=== PATIENT | female | born 1975 | race Caucasian/White ===

== ENCOUNTER 2023-10-02 21:01 | Outpatient (REF) | payer BC, SELFPAY ==
--- NOTE | 2023-10-02 16:00 | NASALBX_PTH ---
PATIENT: Magalys Hardin LOC: [facility]#:[id number] AGE/SX: 48/F ROOM: RE10/02/[address]: Brian Moura DO : 1975 BED: DIS: 10/02/2023 SPEC #: [id number] RECD: 10/05/23 11:56 STATUS: SHEEBA REQ #: [id number] [place]: 10/02/23 16:[address]: Brian Moura DEPT: Surgical Specimen RECD BY: Ellie Evans ENTERED: 10/05/23 11:59 SP TYPE: NASALBX OTHR DR: Foster Romero Tissues: NASAL/OROPHARYNX BIOPSY Procedures: GROSS AND MICRO LEVEL 4 Comments: [id number]
== END 2023-10-02 21:02 | disposition home or self-care (01) ==
LOC: LBN 21:01
PROVIDERS: PCP Registered Nurse; Visit Provider Otolaryngology Otolaryngology/Facial Plastic Surgery
DX: D49.2 Neoplasm of unspecified behavior of bone, soft tissue, and skin (principal); L81.4 Other melanin hyperpigmentation
CPT/HCPCS: 88305